=== PATIENT | female | born 1995 | race Caucasian/White ===

== ENCOUNTER → 2025-03-27 | Outpatient (CLI) | payer OTHER, SELFPAY ==
--- NOTE | 2025-03-27 11:23 | XR_ITS ---
Examination: Breast ultrasound, unilateral, left Date and time of exam: March 27, 2025, 11:28 a.m. INDICATIONS: Left breast pain radiating to the axilla beginning 2 1/2 weeks ago Technique: Real-time parrish scale ultrasonographic imaging performed left breast including all 4 quadrants as well as nipple retroareolar and axillary region. Findings: No cystic or solid mass IMPRESSION: BI-RADS Category 1 negative study
== END | disposition home or self-care (01) ==
PROVIDERS: PCP Nurse Practitioner Family; Referring Provider Nurse Practitioner Family; Visit Provider Nurse Practitioner Family
DX: N64.4 Mastodynia (principal)
CPT/HCPCS: 76641